=== PATIENT | female | born 2000 | race Two or more races ===

== ENCOUNTER 2018-11-12 10:15 | Emergency (ER) | payer MEDICAID ==
[~2018-11-12] VITALS: Ht 175.3 cm; Wt 90.7 kg
[2018-11-12 11:00] LABS: Basophils # (auto) 0 uL; Basophils % (auto) 0.5 % (0.0-2.0); Eosinophils # (auto) 0.1 uL; Eosinophils % (auto) 0.7 % (0.0-7.0); Hematocrit 38.7 % (36.0-46.0); Hemoglobin 13.2 g/dL (12.2-16.2); Lymphocytes # (auto) 1.4 uL; Lymphocytes % (auto) 16.3 % (10.0-50.0); Mean Corpuscular Hemoglobin 28.3 pg (28.0-32.0); Mean Corpuscular Hgb Conc. 34.2 g/dL (32.0-36.0); Mean Corpuscular Volume 82.6 fL (80.0-100.0); Monocytes # (auto) 0.4 uL; Neutrophils # (auto) 6.8 uL; Neutrophils % (auto) 78.5 % (37.0-80.0); Platelet Count (auto) 364 10^3/uL (140-450); Red Blood Cells 4.68 10^6/uL (4.0-5.20); Red Cell Distribution Width 12.9 % (11.8-14.3); White Blood Cell 8.7 10^3/uL (4.4-10.8)
[2018-11-12 11:02] LABS: Urine Bacteria NONE SEEN /hpf (None Seen); Urine Blood Negative /uL (Negative); Urine Specific Gravity 1.019 (1.001-1.035); Urine WBC 1 /hpf (0 - 5)
[2018-11-12 11:12] LABS: Calcium 10.1 mg/dL (8.5-10.1); Potassium 3.8 mmol/L (3.5-5.1)
[2018-11-12 11:14] LABS: BUN/Creatinine Ratio 9.8; Bilirubin, Total 0.3 mg/dL (0.2-1.0); Total Protein 8.2 g/dL (6.4-8.2)
[2018-11-12 14:56] VITALS: BP 124/64
== END 2018-11-12 16:13 | disposition home or self-care (01) ==
LOC: ER 10:22
DX: K59.00 Constipation, unspecified (principal)
CPT/HCPCS: 36415; 74176; 80053; 81001; 81025; 85025

== ENCOUNTER 2021-06-27 09:56 | Inpatient (IN) | payer MEDICAID ==
[~2021-06-27] VITALS: Ht 175.3 cm; Wt 102.6 kg
[2021-06-27] MEDS ORDERED: ASPirin 81 mg TAB PO ONE (10:15)
[2021-06-27 10:56] LABS: Urine Bacteria NONE SEEN /hpf (None Seen); Urine Blood TRACE /uL (Negative); Urine Specific Gravity 1.017 (1.001-1.035); Urine WBC 2 /hpf (0 - 5)
[2021-06-27 11:28] LABS: Basophils # (auto) 0.1 10 ^3/uL (0-0.2); Basophils % (auto) 0.8 % (0.0-2.0); Eosinophils # (auto) 0.1 10 ^3/uL (0-0.8); Eosinophils % (auto) 0.9 % (0.0-7.0); Hematocrit 37.8 % (36.0-46.0); Hemoglobin 12.7 g/dL (12.2-16.2); Lymphocytes # (auto) 1.4 10 ^3/uL (0.4-5.4); Mean Corpuscular Hemoglobin 27.4 pg (28.0-32.0); Mean Corpuscular Hgb Conc. 33.4 g/dL (32.0-36.0); Mean Corpuscular Volume 81.8 fL (80.0-100.0); Monocytes # (auto) 0.6 10 ^3/uL (0-1.3); Monocytes % (auto) 5.3 % (0.0-12.0); Neutrophils # (auto) 9.1 10 ^3/uL (1.6-8.6); Red Blood Cells 4.63 10^6/uL (4.0-5.20); Red Cell Distribution Width 13.9 % (11.8-14.3); White Blood Cell 11.2 10^3/uL (4.4-10.8)
[2021-06-27 11:47] LABS: Calcium 8.7 mg/dL (8.5-10.1); Potassium 4.1 mmol/L (3.5-5.1)
[2021-06-27 11:54] LABS: Albumin 3.6 g/dL (3.4-5.0); Bilirubin, Total 0.4 mg/dL (0.2-1.0); Total Protein 7.3 g/dL (6.4-8.2)
[2021-06-27] MEDS ORDERED: ENOXAPARIN SOD 100 MG/1 ML SYRINGE SC ONE (13:00)
[2021-06-27] MEDS ORDERED: IODIXANOL 320MG/ML 100ML BTL IV ONE ×2 (13:17→14:47)
[2021-06-27] MEDS ORDERED: LIDOCAINE 2%HCL (LOCAL ANESTH.) INJ 10ml MDV ONE ×2 (13:17→14:49)
[2021-06-27] MEDS ORDERED: IOHEXOL 350 MG/ML 100ML IJ ONE (13:19)
[2021-06-27] MEDS ORDERED: fentaNYL CITRATE 100 MCG/2 ML VL ONE (13:37)
[2021-06-27] MEDS ORDERED: ANGIOMAX 250 MG VIAL IV ONE (13:37)
[2021-06-27] MEDS ORDERED: VERAPAMIL 2.5MG/ML INJ 2ML VIAL IV ONE (13:37)
[2021-06-27] MEDS ORDERED: SODIUM CHL 0.9% 0 ML ONE (13:38)
[2021-06-27] MEDS ORDERED: MIDAZOLAM HCL 2MG/2ML 2ml VIAL (1mg/ml) ONE (13:38)
[2021-06-27 13:44] LABS: Amphetamine Screen, Urine NEGATIVE (NEGATIVE); Barbiturate Scree,Urine NEGATIVE (NEGATIVE); Benzodiazephine Screen, Urine NEGATIVE (NEGATIVE); Cannabinoid Screen, Urine POSITIVE (NEGATIVE); Cocaine Screen, Urine NEGATIVE (NEGATIVE); Opiate Scree,Urine NEGATIVE (NEGATIVE); Phencyclidine Screen, Urine NEGATIVE (NEGATIVE)
[2021-06-27] MEDS ORDERED: HYDROcodone-ACET 5/325MG TAB PO PRN (13:45)
[2021-06-27] MEDS ORDERED: NITROGLYCERIN 0.4 MG SL TAB SL PRN (13:45)
[2021-06-27] MEDS ORDERED: MORPHINE SULFATE INJECTION 2 MG/ML SYRG IV PRN ×2 (13:45)
[2021-06-27] MEDS ORDERED: ACETAMINOPHEN 325 MG TAB PO PRN (13:45)
[2021-06-27] MEDS ORDERED: ONDANSETRON HCL 4 MG/2 ML VIAL IV PRN (13:45)
[2021-06-27] MEDS: COLCHICINE 0.6 MG CAP PO SCH (15:30)
[2021-06-27] MEDS: SODIUM CHLORIDE 0.9% 1,000 ML IV SCH ×2 (16:38→21:34)
[2021-06-27 17:00] VITALS: BP 97/65
[2021-06-27 19:30] VITALS: BP 106/68
[2021-06-27 22:00] VITALS: BP 107/66
[2021-06-28 04:47] VITALS: BP 105/63
[2021-06-28 05:59] LABS: Basophils # (auto) 0.1 10 ^3/uL (0-0.2); Basophils % (auto) 0.6 % (0.0-2.0); Eosinophils # (auto) 0.1 10 ^3/uL (0-0.8); Eosinophils % (auto) 1.6 % (0.0-7.0); Hematocrit 35.2 % (36.0-46.0); Hemoglobin 11.9 g/dL (12.2-16.2); Lymphocytes # (auto) 2.4 10 ^3/uL (0.4-5.4); Lymphocytes % (auto) 28.9 % (10.0-50.0); Mean Corpuscular Hemoglobin 27.9 pg (28.0-32.0); Mean Corpuscular Hgb Conc. 33.6 g/dL (32.0-36.0); Mean Corpuscular Volume 82.8 fL (80.0-100.0); Monocytes # (auto) 0.5 10 ^3/uL (0-1.3); Neutrophils # (auto) 5.3 10 ^3/uL (1.6-8.6); Neutrophils % (auto) 62.9 % (37.0-80.0); Red Blood Cells 4.26 10^6/uL (4.0-5.20); Red Cell Distribution Width 13.9 % (11.8-14.3); White Blood Cell 8.5 10^3/uL (4.4-10.8)
[2021-06-28 06:14] LABS: Albumin 2.9 g/dL (3.4-5.0); BUN/Creatinine Ratio 10.6; Calcium 8.1 mg/dL (8.5-10.1); Potassium 3.6 mmol/L (3.5-5.1)
[2021-06-28 06:17] LABS: Bilirubin, Total 0.4 mg/dL (0.2-1.0); Total Protein 6.2 g/dL (6.4-8.2)
[2021-06-28] MEDS: SODIUM CHLORIDE 0.9% 1,000 ML IV SCH (07:00)
[2021-06-28 09:00] VITALS: BP 114/76
[2021-06-28] MEDS: COLCHICINE 0.6 MG CAP PO SCH (09:41)
[2021-06-28 13:00] VITALS: BP 110/75
[2021-06-28] MEDS ORDERED: COLC0.6T56 PO (13:22)
[2021-06-28 14:21] VITALS: BP 110/75
== END 2021-06-28 15:05 | disposition home or self-care (01) | DRG 192 ==
LOC: ER 09:56 → TELE 13:48 → TELE-WESTW 17:12
PROVIDERS: ADMIT Internal Medicine; ATTEND Internal Medicine
PROC: 4A023N7 Measurement of Cardiac Sampling and Pressure, Left Heart, Percutaneous Approach (ICD-10-PCS; principal; 2021-06-27)
PROC: B211YZZ Fluoroscopy of Multiple Coronary Arteries using Other Contrast (ICD-10-PCS; 2021-06-27)
DX: I30.9 Acute pericarditis, unspecified (principal); E66.9 Obesity, unspecified; I40.9 Acute myocarditis, unspecified; F12.90 Cannabis use, unspecified, uncomplicated; I25.10 Atherosclerotic heart disease of native coronary artery without angina pectoris; J20.9 Acute bronchitis, unspecified; J45.909 Unspecified asthma, uncomplicated; R09.1 Pleurisy; Z20.822 Contact with and (suspected) exposure to COVID-19; Z68.33 Body mass index [BMI] 33.0-33.9, adult; Z82.49 Family history of ischemic heart disease and other diseases of the circulatory system
CPT/HCPCS: 36415; 71045; 80053; 80307; 81001; 82550; 84484; 85025; 93005; 93306; 93458; 99152; 99153; G0378; J2001; J2250; Q9967

== ENCOUNTER 2024-01-21 17:11 | Emergency (ER) | payer MEDICAID ==
[~2024-01-21] VITALS: Ht 175.3 cm; Wt 104.0 kg
[~2024-01-21 17:11] MED LIST: COLC0.6T56 PO
--- NOTE | 2024-01-21 17:33 | ED.PDOC ---
Musculoskeletal HPI Comments A 23 YEAR OLD FEMALE BROUGHT IN BY AMBULANCE PRESENTS TO THE ED WITH COMPLAINT OF RIGHT ANKLE PAIN. PATIENT STATES SHE WAS RIDING IN A [employer]OLF CART AND WHEN SHE STUCK HER RIGHT FOOT OUTSIDE OF THE [employer]OLF CART HER RIGHT FOOT HIT THE GROUND AND TWISTED HER RIGHT ANKLE CAUSING HER TO FALL OUT OF THE GOLF CART. PATIENT REPORTS SHE IS NOW EXPERIENCING RIGHT ANKLE PAIN WITH MILD SWELLING. PATIENT NOTES HER PAIN IS WORSE WHEN BEARING WEIGHT. PATIENT DENIES HEAD INJURY, NECK INJURY, LOC, FEVER, CHILLS, SHORTNESS OF BREATH, CHEST PAIN, ABDOMINAL PAIN, NAUSEA, VOMITING, HEADACHE, OR OTHER COMPLAINTS. NO OTHER SYMPTOMS OR MODIFYING FACTORS AT THIS TIME. PATIENT IS ALERT, ORIENTED X 4, AND HAS STEADY GAIT. Time Seen by MD: 17:26 Primary Care Provider: CLAUDIO Reviewed Notes: Nurses Notes, Van Cdl Driver Notes, Medications, Allergies Allergies: Coded Allergies: NO KNOWN ALLERGIES (Unverified , 02/10/12) Home Meds Active Scripts Ibuprofen (Ibuprofen) 800 Mg Tab, 1 TAB PO TID, #30 TAB Prov:FACUNDO PETERSEN 01/21/24 Colchicine (COLCRYS TABLET) 0.6 Mg Tb, 0.6 MG PO DAILY, #30 TAB Prov:PIOTR REYNA MD 06/28/21 Information Source: Patient Mode of Arrival: EMS Location: Right Extremity Location: Ankle Timing: Hours Prehospital treatment: None Severity: Moderate Able to Move Extremity: Yes Bear Weight: Limited Pain: Moderate Mechanism: Blunt Trauma, Twisting Circumstances: Fall Onset of Symptoms: After Trauma Symptoms: Swelling, Pain DVT Risk Factors: NONE Last Tetanus: UTD Associated signs and symptoms: Ankle pain Past Medical History PAST MEDICAL HISTORY: Denies Surgical History: Denies all surgeries NURSING DEPARTMENT CHAIRPERSON History: No Pertinent NURSING DEPARTMENT CHAIRPERSON History Family History Family History: No family hx of Cancer, No family hx of DM, No family hx of Liver dale, No family hx of Stroke Social History Smoker: Non-Smoker Alcohol: Occasionally Drugs: Denies Drug Use Lives In: Home Constitutional: denies: chills, diaphoresis, fatigue, fever, malaise, sweats, weakness, others EENTM: denies: blurred vision, double vision, ear bleeding, ear discharge, ear drainage, ear pain, ear ringing, eye pain, eye redness, hearing loss, mouth pain, mouth swelling, nasal discharge, nose bleeding, nose congestion, nose pain, photophobia, tearing, throat pain, throat swelling, voice changes, others Respiratory: denies: cough, hemoptysis, orthopnea, SOB at rest, shortness of breath, SOB with excertion, stridor, wheezing, others Cardiovascular: denies: chest pain, dizzy spells, diaphoresis, Dyspnea on exert ion, edema, irregular heart beat, left arm pain, lightheadedness, palpitations, PND, syncope, others Gastrointestinal: denies: abdomen distended, abdominal pain, blood streaked bowels, constipated, diarrhea, dysphagia, difficulty swallowing, hematemesis, melena, nausea, poor appetite, poor fluid intake, rectal bleeding, rectal pain, vomiting, others Genitourinary: denies: abnormal vagina bleeding, burning, dyspareunia, dysuria, flank pain, frequency, hematuria, incontinence, pain, , vagina discharge, urgency, others Neurological: denies: dizziness, fainting, headache, left sided numbness, left sided weakness, numbness, paresthesia, pre-existing deficit, right sided numbness, right sided weakness, seizure, speech problems, tingling, tremors, weakness, others Musculoskeletal: reports: joint pain, joint swelling, others (RIGHT ANKLE PAIN WITH MILD SWELLING); denies: back pain, gout, muscle pain, muscle stiffness, neck pain Integumetry: denies: bruises, change in color, change in hair/nails, dryness, laceration, lesions, lumps, rash, wounds, others Allergic/Immunocompromised: denies: Difficulty Healing, Frequent Infections, Hives, Itching, others Hematologic/Lymphatic: denies: anemia, blood clots, easy bleeding, easy bruising, swollen glands, others Endocrine: denies: excessive hunger, excessive sweating, excessive thirst, excessive urination, flushing, intolerance to cold, intolerance to heat, une xplained weight gain, unexplained weight loss, others Psychiatric: denies: anxiety, bipolar disorder, depression, hopeless, panic disorder, schizophrenia, sleepless, suicidal, others All Other Systems: Reviewed and Negative Physical Exam General Appearance: No Apparent Distress, Obese HEENT: Normal ENT Inspection, PERRL/EOMI, Pharynx Normal, TMs Normal Neck: Full Range of Motion, Non-Tender, Normal, Normal Inspection Respiratory: Chest Non-Tender, Lungs Clear, No Accessory Muscle Use, No Res piratory Distress, Normal Breath Sounds Cardiovascular: No Edema, No JVD, No Murmur, No Gallop, Normal Peripheral Pulses, Regular Rate/Rhythm Breast Exam: Deferred Gastrointestinal: No Organomegaly, Non Tender, No Pulsatile Mass, Normal Bowel Sounds, Soft Genitalia: Deferred Pelvic: Deferred Rectal: Deferred Extremities: Decreased range of motion, No calf tenderness, Normal capillary refill, No pedal edema, Swelling (AND TENDERNESS ON RIGHT ANKLE, NO DEFORMITY AND OPEN WOUND. ), Tender (AND SWELLING ON RIGHT ANKLE, NO BONY TENDERNESS AND DEFORMITY. ) Musculoskeletal : Apperance: Normal Neurologic: Alert, vascular surgery physician II-XII nml as Tested, No Motor Deficits, Normal Affect, Normal Mood, No Sensory Deficits Cerebellar Function: Normal Reflexes: Normal Skin: Dry, Normal Color, Warm Peripheral Pulses: 2+ carotid (R), 2+ carotid (L), 2+ dorsalis pedis (R), 2+ dorsalis pedis (L) Lymphatic: No Adenopathy Was a procedure done? Was a procedure done?: No Differential Diagnosis EXT Differential Diagnosis: Fracture, Sprain, Dislocation, Contusion, Strain, Bursitis X-Ray, Labs, Meds, VS Vital Signs Date Time Temp Pulse Resp B/P (MAP) Pulse Ox O2 Delivery O2 Flow Rate FiO2 01/21/24 17:38 98.6 98 16 122/83 (96) 98 98.6 01/21/24 17:38 98 16 98 Room Air Current Medications Medications (Trade) Dose Ordered Sig/Franchesca Route Start Time Stop Time Status Last Admin Acetaminophen/ Hydrocodone Bitart ([place] 5/325MG Tab) 1 tab ONCE ONCE PO 01/21/24 17:30 01/21/24 17:31 DC 01/21/24 17:42 CLINICAL INDICATION: FALL INJURY TECHNIQUE: 3 views of the right ankle. XY R ANKLE 3 VIEW Comparison: None FINDINGS/IMPRESSION: No acute fracture is identified. There is abnormal widening of medial ankle mortise, raising concern for ligamentous injury. Mild regional soft tissue swelling is noted. Suggestion of a small ankle joint effusion. ATED BY: JOSE CABELLO MD DICTATED DATE/TIME: 01/21/241810 SIGNED BY: JOSE CABELLO MD SIGNED DATE/TIME: 01/21/241810 CC: X-Ray, Labs, Meds, VS Comment TREATMENT: NORCO 5/325 MG P.O., ANKLE STIRRUP SPLINT APPLIED TO PATIENT'S RIGHT ANKLE. CRUTCHES GIVEN. 1807: ORTHOPEDIC: I HAVE CONSULTED DR. DAVIS REGARDING THIS PATIENT'S CASE AND X RAY RESULTS AND HE HAS SAID THE PATIENT IS OKAY TO BE DISCHARGED HOME AND CAN FOLLOW UP WITH HIS OFFICE ON Tuesday01/23/2024 AT 0900. Images Reviewed?: Images reviewed and evaluated by me Time of 1ST Reevaluation: 18:22 Reevaluation 1ST: Improved Consultation: Other (ORTHOPEDIC: I HAVE CONSULTED DR. DAVIS REGARDING THIS PATIENT'S CASE AND X RAY RESULTS AND HE HAS SAID THE PATIENT IS OKAY TO BE DISCHARGED HOME AND CAN FOLLOW UP WITH HIS OFFICE ON Tuesday01/23/2024 AT 0900.) Patient Education/Counseling: Diagnosis, Treatment, Need For Follow Up Family Education/Counseling: Diagnosis, Treatment, Need For Follow Up Medical Screening: No EMC Exist At This Time Departure 1 Departure Time of Disposition: 18:40 Impression: Primary Impression: Sprain of right ankle Qualified Codes: S93.401A - Sprain of unspecified ligament of right ankle, initial encounter Additional Impression: Injury of ligament Disposition: HOME / SELF CARE / HOMELESS Condition: Stable Additional Instructions: FOLLOW-UP WITH DR. DAVIS'S OFFICE ON Tuesday01/23/2024 AT 0900. TAKE MEDICATIONS PRESCRIBED. RETURN TO ED FOR ANY NEW OR WORSENING SYMPTOMS. e-Prescriptions Ibuprofen (Ibuprofen) 800 Mg Tab 1 TAB PO TID, #30 TAB Prov: FACUNDO PETERSEN 01/21/24 Discharged With: Self, Relative (Mother) Critical Care Note Critical Care Time?: No Stability Stability form required: No I personally scribed for FACUNDO PETERSEN ([email or web address]) on 01/21/24 at 17:33. Electronically submitted by Jasbir Trimble ([email or web address]). I personally scribed for FACUNDO PETERSEN ([email or web address]) on 01/21/24 at 18:07. Electronically submitted by Jasbir Trimble (IDANIA). I personally scribed for FACUNDO PETERSEN ([email or web address]) on 01/21/24 at 18:11. Electronically submitted by Jasbir Trimble ([email or web address]). I personally scribed for FACUNDO PETERSEN ([email or web address]) on 01/21/24 at 18:18. Electronically submitted by Jasbir Trimble ([email or web address]). FACUNDO PETERSEN Jan 21, 2024 17:33
[2024-01-21 17:38] VITALS: BP 122/83; PULSE 98; RESP 16; TEMP 98.6; O2SAT 98
[2024-01-21] MEDS: HYDROcodone-ACET 5/325MG TAB PO ONE (17:42)
--- NOTE | 2024-01-21 18:13 | DVH ---
CLINICAL INDICATION: FALL INJURY TECHNIQUE: 3 views of the right ankle. XY R ANKLE 3 VIEW Comparison: None FINDINGS/IMPRESSION: No acute fracture is identified. There is abnormal widening of medial ankle mortise, raising concern for ligamentous injury. Mild regional soft tissue swelling is noted. Suggestion of a small ankle abdiel nt effusion.
[2024-01-21] MEDS ORDERED: IBUP-1456 PO (18:17)
--- NOTE | 2024-01-21 18:27 | DVH ---
CLINICAL INDICATION: FALL TECHNIQUE: 1 radiographic views of the right ankle were obtained. Comparison: XY R ANKLE 3 VIEW on DOS: 01/21/24 FINDINGS/IMPRESSION: Lateral subluxation of the foot with widening of the medial ankle mortise proximally 10 mm. No fractu res are seen. Widened medial ankle mortise. Lateral subluxation of the foot There is no radiopaque foreign body. HS:Y
== END 2024-01-21 18:25 | disposition home or self-care (01) ==
LOC: ER 17:11 → EDBD 17:11 → EDUNIT# 17:11 → ER 18:24
DX: S93.491A Sprain of other ligament of right ankle, initial encounter (principal); Z79.899 Other long term (current) drug therapy; X50.1XXA Overexertion from prolonged static or awkward postures, initial encounter; Y93.89 Activity, other specified; Y92.89 Other specified places as the place of occurrence of the external cause; Y99.8 Other external cause status
CPT/HCPCS: 29515; 73600; 73610